=== PATIENT | female | born 1985 | race American Indian/Alaskan Native ===

== ENCOUNTER 2020-09-24 12:46 | Emergency (ER) | payer MEDICAID ==
[2020-09-24 13:13] VITALS: BP 150/99
[2020-09-24 15:40] LABS: Basophils % (Auto) 0.2 % (0.0-1.8); Eosinophils # (Auto) 0.1 K/mm3 (0.0-0.4); Eosinophils % (Auto) 1.5 % (0.0-4.3); Hematocrit 34.5 % (30.3-42.9); Hemoglobin 12.3 gm/dl (10.1-14.3); Lymphocytes # (Auto) 1.4 K/mm3 (1.2-5.4); Lymphocytes % (Auto) 21.3 % (13.4-35.0); Mean Corpuscular HGB Conc 36 % (30-34); Mean Corpuscular Volume 89 fl (79-97); Monocytes # (Auto) 0.4 K/mm3 (0.0-0.8); Monocytes % (Auto) 5.3 % (0.0-7.3); Platelet Count 209 K/mm3 (140-440); Red Blood Count 3.88 M/mm3 (3.65-5.03); Red Cell Distribution Width 14.5 % (13.2-15.2)
--- NOTE | 2020-09-24 16:01 | Emergency Department Report ---
ED HPI - General Chief complaint: Vaginal Bleeding Stated complaint: SPOTTING/CRAMPING Time Seen by Provider: 09/24/20 15:01 Source: patient Mode of arrival: Ambulatory Limitations: No Limitations - History of Present Illness Initial comments: 35-year-old female presents to the ER today with complaints of and vaginal spotting. Patient states that she noticed the spotting around 1 or 2:00 this morning. Patient reports also intermittent low abdominal cramping. She states that her last menstrual cycle was around June 30, 2020 and she thinks she is about 12 weeks based on that. Her first [facility]STRU[facility] appointment with [facility] is this Friday. Patient is Ab0. She denies any other symptoms at this time. MD Complaint: vaginal bleeding -: days(s) (this morning ) - Related Data Allergies Allergy/AdvReac Type Severity Reaction Status Date / Time No Known Allergies Allergy Unverified 09/24/20 13:13 ED Review of Systems ROS: Stated complaint: SPOTTING/CRAMPING Other details as noted in HPI Comment: All other systems reviewed and negative Constitutional: denies: chills, fever Eyes: denies: eye pain, eye discharge, vision change ENT: denies: ear pain, throat pain, dental pain, hearing loss, epistaxis, congestion Respiratory: denies: cough, shortness of breath, wheezing Cardiovascular: denies: chest pain, palpitations, dyspnea on exertion, edema, syncope, paroxysmal nocturnal dyspnea Gastrointestinal: abdominal pain. denies: nausea, vomiting, diarrhea, constipation, hematemesis, melena, hematochezia Genitourinary: other (Abnormal vaginal bleeding; positive ). denies: urgency, dysuria, frequency, hematuria, discharge Musculoskeletal: denies: back pain, joint swelling, arthralgia Skin: denies: rash, lesions Neurological: denies: headache, weakness, numbness, paresthesias, confusion, abnormal gait, vertigo Psychiatric: denies: anxiety, depression, auditory hallucinations, visual hallucinations, homicidal thoughts, suicidal thoughts Hematological/Lymphatic: denies: easy bleeding, easy bruising, swollen glands ED Past Medical Hx - Past Medical History Previous Medical History?: Yes - Surgical History Past Surgical History?: Yes Additional Surgical History: x 1 - Social History Smoking Status: Never Smoker Substance Use Type: None ED Physical Exam - General Limitations: No Limitations General appearance: alert, in no apparent distress - Neck Neck exam: Present: normal inspection, full ROM - Respiratory Respiratory exam: Absent: respiratory distress - Cardiovascular Cardiovascular Exam: Present: regular rate - GI/Abdominal GI/Abdominal exam: Present: soft, tenderness (Mild suprapubic tenderness without guarding or rebound or rigidity). Absent: distended - Neurological Exam Neurological exam: Present: alert, oriented X3, CN II-XII intact, normal gait - Psychiatric Psychiatric exam: Present: normal affect, normal mood - Skin Skin exam: Present: intact ED Course Vital Signs 09/24/20 13:10 Temperature 98.2 F Pulse Rate 85 Respiratory 20 Rate Blood Pressure 150/99 O2 Sat by Pulse 98 Oximetry ED Medical Decision Making - Lab Data Result diagrams: 09/24/20 14:44 09/24/20 16:06 - Radiology Data Radiology results: report reviewed Patient: SOPHIA FAIRBANKS MR#: [id number] : 1985 Acct:[id number] Age/Sex: 35 / F ADM Date: 09/24/20 Loc: ED Attending Dr: Ordering Physician: FADI AL Date of Service: 09/24/20 Procedure(s): US OB transvaginal Accession Number(s): [id number] cc: FADI AL ULTRASOUND PELVIS INDICATION: vag spotting about 12 weeks preg. TECHNIQUE: Transabdominal. Transvaginal Duplex Color Doppler used: Yes. COMPARISON: None available FINDINGS: Uterus: Present. Size: 14.9 x 7.9 x 10 cm. Endometrial complex: Intrauterine dated 12 weeks 5 days. heart tones are 173 bpm. Small subchorionic hemorrhage. Mass lesions: 1.6 cm fibroid Additional findings: Cervix closed measuring 6.1 cm Right Ovary -- Normal. Blood flow: Normal. Cyst or mass: None. Left Ovary-- Normal. Blood flow: Normal. Cyst or mass: 2 cysts measuring 2.5 and 1.7 cm Urinary Bladder: Normal. Free Fluid: Normal. Additional Findings: None. IMPRESSION: 1. Viable intrauterine dated 12 weeks 5 days with small subchorionic hemorrhage. 2. Benign-appearing left ovarian cyst. 3. Minimal pelvic free fluid. 4. Small uterine fibroid. Signer Name: To Antonio MD Signed: 09/24/2020 6:10 PM Workstation Name: [id number] Transcribed By: ES Dictated By: To Antonio MD Electronically Authenticated By: To Antonio MD Signed Date/Time: 09/24/201809 DD/ 05 TD/TT: - Medical Decision Making Patient resting comfortably. She reports no worsening bleeding or pain during stay. She is not toxic or ill-appearing. She is neurologically intact with a normal gait. Her vital signs are stable Labs reviewed --CBC/CMP/[place] [address]. She is O+ therefore no indication for RhoGam at this time. OB ultrasound shows - 1. Viable intrauterine dated 12 weeks 5 days with small subchorionic hemorrhage. 2. Benign-appearing left ovarian cyst. 3. Minimal pelvic free fluid. 4. Small uterine fibroid. Lab results as well as ultrasound results discussed with patient. Patient has an appointment with her ASTRONOMY INSTRUCTOR this coming Friday, recommend that she keeps her appointment but in the meantime recommend no strenuous activity or sexual activity. She can take Tylenol if she develops any pain. No further work-up, emergent specialist consult needed at this time Patient expressed understanding of instructions and agree with plan. Patient stable at time of discharge. Critical care attestation.: If time is entered above; I have spent that time in minutes in the direct care of this critically ill patient, excluding procedure time. ED Disposition Clinical Impression: Threatened miscarriage, Subchorionic bleed, Uterine fibroid, Ovarian cyst Disposition: TO HOME OR SELFCARE Is pt being admited?: No Does the pt Need Aspirin: No Condition: Stable Instructions: Threatened Miscarriage, Uterine Fibroids, [id number], Ovarian Cyst, [id number], Subchorionic Hematoma Additional Instructions: I recommend that you keep your appointment with the ASTRONOMY INSTRUCTOR for next Friday. Recommend no sexual activity or strenuous activity until follow-up with ASTRONOMY INSTRUCTOR. You can take Tylenol as needed for pain. Return to the ER if your symptoms changes or worsens in any way. Referrals: PRIMARY CARE, [Primary Care Provider] - 3-5 Days Time of Disposition: 18:21
[2020-09-24 16:41] LABS: Bilirubin,Urine NEG (Negative); Blood,Urine NEG (Negative); Color,Urine Yellow (Yellow); Mucus,Urine FEW /HPF; Protein,Urine <15 mg/dL mg/dL (Negative); Urobilinogen,Urine < 2.0 mg/dL (<2.0)
[2020-09-24 16:42] LABS: Alanine Aminotransferase 17 units/L (7-56); Albumin 3.9 g/dL (3.9-5); BUN/Creatinine Ratio 18; Blood Urea Nitrogen 11 mg/dL (7-17); Calcium 9.3 mg/dL (8.4-10.2); Hemolysis Index 1
== END 2020-09-24 18:35 | disposition home or self-care (01) ==
LOC: ED 12:46
DX: O20.0 Threatened abortion (principal); O41.8X90 Other specified disorders of amniotic fluid and membranes, unspecified trimester, not applicable or unspecified; O26.891 Other specified pregnancy related conditions, first trimester; D25.9 Leiomyoma of uterus, unspecified; N83.209 Unspecified ovarian cyst, unspecified side; Z98.890 Other specified postprocedural states; Z3A.12 12 weeks gestation of pregnancy
CPT/HCPCS: 36415; 76801; 76815; 76817; 80053; 81001; 84702; 85025; 86900; 86901

== ENCOUNTER 2021-11-13 13:16 | Outpatient (CLI) | payer BC, MEDICAID ==
--- NOTE | 2021-11-13 15:15 | Ultrasound Report ---
US OB BPP wo non-stress, US OB limited INDICATION / CLINICAL INFORMATION: bpp/enio, DECREASED MOVEMENT, CRAMPING. COMPARISON: None available. FINDINGS: BREATHING MOVEMENT = 2 GROSS BODY MOVEMENT = 2 TONE = 2 QUALITATIVE AMNIOTIC FLUID VOLUME = 2 TOTAL BIOPHYSICAL SCORE = 8/8 AMNIOTIC FLUID INDEX (cm) = 24.7 (normal = 7-24 cm). PRESENTATION: Cephalic. HEART RATE (beats per minute): 150 IMPRESSION: 1. biophysical profile = 10/29 2. Minimally increased amniotic fluid index measuring 24.7 cm. Signer Name: Rom Chun MD Signed: 11/13/2021 3:10 PM Workstation Name: [id number]
[2021-11-13] MEDS ORDERED: LACTATED RINGERS 500 ML IV ONE (17:06)
[2021-11-13 19:10] LABS: Bacteria,Urine 4+ /HPF (Negative); Mucus,Urine FEW /HPF
[2021-11-13 19:15] LABS: Color,Urine Yellow (Yellow)
[2021-11-13] MEDS ORDERED: LIDOCAINE-MPF (1%) 10 MG/1 ML VIAL 5 ML INFILTRATI ONE (19:38)
[2021-11-13 19:50] VITALS: BP 140/80
== END 2021-11-13 22:47 | disposition home or self-care (01) ==
LOC: TRG 13:16 → APU 13:17 → TRG 22:47
PROVIDERS: ATTEND Obstetrics & Gynecology
DX: O36.8120 Decreased fetal movements, second trimester, not applicable or unspecified (principal); O26.892 Other specified pregnancy related conditions, second trimester; R25.2 Cramp and spasm; O09.522 Supervision of elderly multigravida, second trimester; O13.2 Gestational [pregnancy-induced] hypertension without significant proteinuria, second trimester; O99.512 Diseases of the respiratory system complicating pregnancy, second trimester; J45.909 Unspecified asthma, uncomplicated; Z3A.27 27 weeks gestation of pregnancy
CPT/HCPCS: 36415; 59025; 76815; 76819; 81001; 82731; 96372; J0696; J3490